=== PATIENT | female | born 1990 | race Caucasian/White ===

== ENCOUNTER → 2016-07-12 | Outpatient (CLI) | payer OTHER | LOC: M LAB 14:43 | PROVIDERS: ATTEND Family Medicine | DX: Z11.59 Encounter for screening for other viral diseases (principal) ==

== ENCOUNTER → 2016-07-26 | Outpatient (REF) | payer OTHER | LOC: M SFHCPLAZ 16:51 | PROVIDERS: ATTEND Family Medicine | DX: B19.20 Unspecified viral hepatitis C without hepatic coma (principal) ==

== ENCOUNTER → 2016-07-28 | Outpatient (REF) | payer OTHER | LOC: M SFHCPLAZ 08:21 | PROVIDERS: ATTEND Family Medicine | DX: B19.20 Unspecified viral hepatitis C without hepatic coma (principal) ==

== ENCOUNTER → 2016-08-07 | Outpatient (CLI) | payer OTHER ==
[2016-08-07 15:01] LABS: BASO % 0.6 % (0.0-1.0); EOS # 0.1 K/mm3 (0.0-0.50); EOS % 1.6 % (0.0-3.0); LARGE UNSTAINED CELL # 0.1 K/mm3 (0.0-0.4); LARGE UNSTAINED CELL % 1.7 % (0.0-4.0); LYMPH % 35.1 % (24.0-44.0); MEAN CORPUSCULAR HEMOGLOBIN 28.3 pg (27.0-33.0); MEAN CORPUSCULAR HGB CONC 33.4 g/dl (32.0-36.5); MEAN CORPUSCULAR VOLUME 84.7 fl (80.0-96.0); MONO # 0.3 K/mm3 (0.0-0.8); MONO % 4.6 % (0.0-5.0); NEUTROPHILS # 3.3 K/mm3 (1.8-7.7); NEUTROPHILS % 56.5 % (36.0-66.0); PLATELET COUNT, AUTOMATED 206 k/mm3 (150-450); RED CELL DISTRIBUTION WIDTH 12.5 % (11.5-14.5); WHITE BLOOD COUNT 5.8 K/mm3 (4.0-10.0)
[2016-08-07 15:29] LABS: ALBUMIN 3.6 GM/DL (3.2-5.2); ALBUMIN/GLOBULIN RATIO 1.38 (1.00-1.93); ALKALINE PHOSPHATASE 56 U/L (45-117); ALT/SGPT 20 U/L (12-78); ANION GAP 9 MEQ/L (8-16); AST/SGOT 14 U/L (15-37); BILIRUBIN,TOTAL 0.2 MG/DL (0.2-1.0); BLOOD UREA NITROGEN 23 MG/DL (7-18); CALCIUM LEVEL 8.2 MG/DL (8.5-10.1); CARBON DIOXIDE LEVEL 26 MEQ/L (21-32); CHLORIDE LEVEL 107 MEQ/L (98-107); CREATININE FOR GFR 0.74 MG/DL (0.55-1.02); GLOMERULAR FILTRATION RATE > 60.0 (>60); GLUCOSE, FASTING 145 MG/DL (70-105); SODIUM LEVEL 142 MEQ/L (136-145); TOTAL PROTEIN 6.2 GM/DL (6.4-8.2)
[2016-08-09 11:10] LABS: HEPATITIS B SURFACE ANTIBODY NEGATIVE (POSITIVE)
== END ==
LOC: M LAB 14:00
PROVIDERS: ATTEND Family Medicine
DX: B19.20 Unspecified viral hepatitis C without hepatic coma (principal)

== ENCOUNTER → 2016-09-06 | Outpatient (CLI) | payer OTHER ==
--- NOTE | 2016-09-06 13:00 | REP ---
Digital diagnostic unilateral right breast mammography with CAD and focused right breast sonography: History: Areas of periareolar and axillary pain in the right breast. Mammographic findings: Craniocaudad and mediolateral oblique views of the right breast demonstrate somewhat heterogeneous fibroglandular breast parenchymal density diffusely. No mass lesion, architectural distortion or spiculation is seen. No worrisome skin change is seen. Sonographic findings: Areas of pain in the right periareolar and axillary region are scanned sonographically. Heterogeneous fibroglandular background echotexture is seen. No cyst, mass, acoustic shadowing or other suspicious sonographic finding is seen. There are some slightly prominent retroareolar breast ducts. Impression: BIRADS category 2 benign right breast imaging. Clinical follow-up is advised. BI-RADS/ACR category 2 mammogram. Benign finding(s). Routine annual screening mammography (for women over age 40). This mammogram was interpreted with the aid of an FDA-approved computer-aided detection system. The patient states she had a clinical breast exam in August 2016. The patient letter being requested is M2. Signed by Sandeep Kimble MD 09/06/2016 01:31 P
== END ==
LOC: M RAD 11:21
PROVIDERS: ATTEND Family Medicine
DX: N64.4 Mastodynia (principal)
CPT/HCPCS: 76642; G0206

== ENCOUNTER → 2016-09-19 | Outpatient (REF) | payer OTHER ==
[2016-09-19 16:54] LABS: ALBUMIN 3.8 GM/DL (3.2-5.2); ALBUMIN/GLOBULIN RATIO 1.41 (1.00-1.93); ALKALINE PHOSPHATASE 75 U/L (45-117); ALT/SGPT 34 U/L (12-78); AST/SGOT 26 U/L (15-37); BILIRUBIN,DIRECT < 0.1 MG/DL (0.0-0.2); BILIRUBIN,TOTAL 0.2 MG/DL (0.2-1.0); TOTAL PROTEIN 6.5 GM/DL (6.4-8.2)
[2016-09-25 14:11] LABS: HEPATITIS C QUANTITATION HCV Not Detected IU/mL (.)
== END ==
LOC: M SFHCPLAZ 11:43
PROVIDERS: ATTEND Internal Medicine Infectious Disease
DX: B19.20 Unspecified viral hepatitis C without hepatic coma (principal)

== ENCOUNTER → 2016-10-06 | Outpatient (REF) | payer OTHER | LOC: M SFHCPLAZ 12:14 | PROVIDERS: ATTEND Family Medicine | DX: E10.9 Type 1 diabetes mellitus without complications (principal); Z13.220 Encounter for screening for lipoid disorders ==

== ENCOUNTER → 2016-10-06 | Outpatient (REF) | payer OTHER | LOC: M LAB REF 13:41 | PROVIDERS: ATTEND Family Medicine | DX: Z11.3 Encounter for screening for infections with a predominantly sexual mode of transmission (principal) ==

== ENCOUNTER → 2016-11-02 | Outpatient (REF) | payer OTHER ==
[2016-11-02 16:20] LABS: ALBUMIN 3.8 GM/DL (3.2-5.2); ALBUMIN/GLOBULIN RATIO 1.36 (1.00-1.93); ALKALINE PHOSPHATASE 62 U/L (45-117); ALT/SGPT 20 U/L (12-78); AST/SGOT 13 U/L (15-37); BILIRUBIN,DIRECT < 0.1 MG/DL (0.0-0.2); BILIRUBIN,TOTAL 0.3 MG/DL (0.2-1.0); TOTAL PROTEIN 6.6 GM/DL (6.4-8.2)
[2016-11-03 11:51] LABS: HEPATITIS B SURFACE ANTIBODY NEGATIVE (POSITIVE)
[2016-11-08 00:07] LABS: HEPATITIS C QUANTITATION 520 IU/mL (.)
== END ==
LOC: M SFHCPLAZ 12:36
PROVIDERS: ATTEND Internal Medicine Infectious Disease
DX: B19.20 Unspecified viral hepatitis C without hepatic coma (principal)

== ENCOUNTER → 2017-01-22 | Outpatient (REF) | payer OTHER | LOC: M SFHCWAGY 13:41 | PROVIDERS: ATTEND Nurse Practitioner Women's Health | DX: R87.622 Low grade squamous intraepithelial lesion on cytologic smear of vagina (LGSIL) (principal) ==

== ENCOUNTER → 2017-02-05 | Outpatient (REF) | payer OTHER ==
[2017-02-05 16:09] LABS: ALBUMIN 3.5 GM/DL (3.2-5.2); ALKALINE PHOSPHATASE 79 U/L (45-117); ALT/SGPT 25 U/L (12-78); ANION GAP 10 MEQ/L (8-16); AST/SGOT 12 U/L (15-37); BILIRUBIN,TOTAL 0.2 MG/DL (0.2-1.0); BLOOD UREA NITROGEN 14 MG/DL (7-18); CALCIUM LEVEL 8.3 MG/DL (8.5-10.1); CARBON DIOXIDE LEVEL 25 MEQ/L (21-32); CHLORIDE LEVEL 109 MEQ/L (98-107); CHOLESTEROL LEVEL 135 MG/DL (<200); CREATININE FOR GFR 0.71 MG/DL (0.55-1.02); GLOMERULAR FILTRATION RATE > 60.0 (>60); GLUCOSE, FASTING 147 MG/DL (70-105); POTASSIUM SERUM 3.6 MEQ/L (3.5-5.1); SODIUM LEVEL 144 MEQ/L (136-145); TOTAL PROTEIN 6.2 GM/DL (6.4-8.2); TRIGLYCERIDES LEVEL 122 MG/DL (<150)
[2017-02-07 10:31] LABS: HEPATITIS B SURFACE ANTIBODY NEGATIVE (POSITIVE)
== END ==
LOC: M SFHCPLAZ 10:58
PROVIDERS: ATTEND Internal Medicine Infectious Disease
DX: B19.20 Unspecified viral hepatitis C without hepatic coma (principal)

== ENCOUNTER → 2017-02-15 | Outpatient (CLI) | payer OTHER ==
[2017-02-19 14:14] LABS: HEPATITIS C VIRUS GENOTYPE 1a (.)
== END ==
LOC: M LAB 14:20
PROVIDERS: ATTEND Family Medicine
DX: B18.2 Chronic viral hepatitis C (principal)

== ENCOUNTER → 2017-03-16 | Outpatient (CLI) | payer OTHER ==
[2017-03-16 13:22] LABS: ALBUMIN 3.4 GM/DL (3.2-5.2); ALBUMIN/GLOBULIN RATIO 1.21 (1.00-1.93); BILIRUBIN,DIRECT 0.1 MG/DL (0.0-0.2); BILIRUBIN,TOTAL 0.2 MG/DL (0.2-1.0); TOTAL PROTEIN 6.2 GM/DL (6.4-8.2)
[2017-03-20 14:16] LABS: HEPATITIS C QUANTITATION HCV Not Detected IU/mL (.)
== END ==
LOC: M LAB 12:27
PROVIDERS: ATTEND Internal Medicine Infectious Disease
DX: B18.2 Chronic viral hepatitis C (principal)

== ENCOUNTER → 2017-04-03 | Outpatient (REF) | payer OTHER | LOC: M LAB REF 18:05 | PROVIDERS: ATTEND Obstetrics & Gynecology | DX: N87.1 Moderate cervical dysplasia (principal) ==

== ENCOUNTER → 2017-07-26 | Outpatient (REF) | payer OTHER ==
[2017-07-26 16:10] LABS: ALBUMIN 3.9 GM/DL (3.2-5.2); ALKALINE PHOSPHATASE 78 U/L (45-117); ALT/SGPT 18 U/L (12-78); ANION GAP 8 MEQ/L (8-16); AST/SGOT 17 U/L (7-37); BILIRUBIN,TOTAL 0.3 MG/DL (0.2-1.0); BLOOD UREA NITROGEN 15 MG/DL (7-18); CALCIUM LEVEL 8.6 MG/DL (8.5-10.1); CARBON DIOXIDE LEVEL 27 MEQ/L (21-32); CHLORIDE LEVEL 108 MEQ/L (98-107); CREATININE FOR GFR 0.67 MG/DL (0.55-1.30); GLOMERULAR FILTRATION RATE > 60.0 (>60); GLUCOSE, FASTING 52 MG/DL (70-100); SODIUM LEVEL 143 MEQ/L (136-145); TOTAL PROTEIN 6.9 GM/DL (6.4-8.2)
[2017-07-27 11:24] LABS: HEPATITIS B SURFACE ANTIBODY NEGATIVE (POSITIVE)
== END ==
LOC: M SFHCPLAZ 12:53
DX: B18.2 Chronic viral hepatitis C (principal)

== ENCOUNTER → 2018-07-09 | Outpatient (REF) | payer OTHER, MEDICAID ==
[2018-07-11 14:12] LABS: HPV HYBRID CAPTURE II Negative (Negative)
== END ==
LOC: M LAB REF 17:55
PROVIDERS: ATTEND Obstetrics & Gynecology
DX: Z12.4 Encounter for screening for malignant neoplasm of cervix (principal)

== ENCOUNTER 2019-01-21 09:45 | Emergency (ER) | payer MEDICAID, OTHER ==
[~2019-01-21] VITALS: Ht 154.9 cm; Wt 68.3 kg
[2019-01-21 13:19] VITALS: BP 117/72
== END 2019-01-21 13:20 | disposition home or self-care (01) ==
LOC: M ED 09:45
DX: Z20.1 Contact with and (suspected) exposure to tuberculosis (principal); Z88.0 Allergy status to penicillin; F17.200 Nicotine dependence, unspecified, uncomplicated

== ENCOUNTER → 2019-05-05 | Outpatient (CLI) | payer OTHER | LOC: M PLALAB 12:28 | PROVIDERS: ATTEND Internal Medicine Infectious Disease | DX: B18.2 Chronic viral hepatitis C (principal) ==

== ENCOUNTER 2019-10-02 00:39 | Emergency (ER) | payer MEDICAID, OTHER ==
[~2019-10-02] VITALS: Ht 154.9 cm; Wt 64.5 kg
[2019-10-02] MEDS ORDERED: GLUCAGON INJ 1MG VIAL IM STA (00:44)
[2019-10-02] MEDS ORDERED: DEXTROSE 50% 50 ML SYRINGE IV STA (00:52)
[2019-10-02] MEDS ORDERED: DEXTROSE 50% 50 ML SYRINGE As Ordered ONE (00:53)
[2019-10-02 02:20] VITALS: BP 122/79
== END 2019-10-02 02:32 | disposition home or self-care (01) ==
LOC: M ED 00:39 → EDBD 00:39 → M ED 02:32
DX: E10.649 Type 1 diabetes mellitus with hypoglycemia without coma (principal); B19.20 Unspecified viral hepatitis C without hepatic coma; F11.21 Opioid dependence, in remission; Z88.0 Allergy status to penicillin
CPT/HCPCS: 96372; 96374; 99291; J1610

== ENCOUNTER → 2020-08-03 | Outpatient (REF) | payer OTHER | LOC: M SFHCWAGY 16:58 | PROVIDERS: ATTEND Obstetrics & Gynecology | DX: N87.0 Mild cervical dysplasia (principal); Z87.410 Personal history of cervical dysplasia ==

== ENCOUNTER → 2020-08-25 | Outpatient (CLI) | payer OTHER ==
[~2020-08-25] MED LIST: ADME100I; BUPR300T92; INSU100I28; LISI2.5T2; RITA20TA PO; SPIR-10 PO; SUBO12MI SL
== END ==
LOC: M LABSMTC 10:51
PROVIDERS: ATTEND Anesthesiology
DX: Z01.818 Encounter for other preprocedural examination (principal); Z11.52 Encounter for screening for COVID-19

== ENCOUNTER 2020-08-30 09:32 | Day surgery (SDC) | payer OTHER ==
[~2020-08-30] VITALS: Ht 154.9 cm; Wt 62.5 kg
[~2020-08-30 09:32] MED LIST changes: -ADME100I; +ADME100I SQ; -BUPR300T92; +BUPR300T92 PO; +CLINDAMYCIN 900 MG in IV 1 EA IV ONE; +D5W IV ONE; +GENTAMICIN IV ONE; -INSU100I28; +INSU100I28 SQ; -LISI2.5T2; +LISI2.5T2 PO; +LR 1,000 ML IV ONE
[2020-08-30 10:07] LABS: HEMOGLOBIN 13.7 g/dl (12.0-15.5); MEAN CORPUSCULAR HEMOGLOBIN 28.2 pg (27.0-33.0); MEAN CORPUSCULAR HGB CONC 33.4 g/dl (32.0-36.5); MEAN CORPUSCULAR VOLUME 84.4 fl (80.0-96.0); PLATELET COUNT, AUTOMATED 230 10^3/uL (150-450); RED BLOOD COUNT 4.86 10^6/uL (4.00-5.40); WHITE BLOOD COUNT 5.9 10^3/uL (4.0-10.0)
[2020-08-30 10:18] LABS: HCG, SERUM QUALITATIVE NEGATIVE (NEGATIVE)
[2020-08-30] MEDS ORDERED: ROCURONIUM BROMIDE 50 MG/5 ML VIAL As Ordered ONE ×2 (10:50→12:50)
[2020-08-30] MEDS ORDERED: dexameTHASONE 4 MG/ML 1ML VIAL (J1100 PER 1MG) As Ordered ONE (10:50)
[2020-08-30] MEDS ORDERED: METOCLOPRAMIDE INJ 10MG/2ML VIAL (J2765 PER 1) As Ordered ONE (10:50)
[2020-08-30] MEDS ORDERED: propofoL 200 MG/20 ML VIAL As Ordered ONE (10:50)
[2020-08-30] MEDS ORDERED: ONDANSETRON 4MG/2ML VIAL As Ordered ONE (10:50)
[2020-08-30] MEDS ORDERED: ACETAMINOPHEN 1000MG 100ML IV BTL (OFIRMEV) (J0131 PER 10MG) As Ordered ONE (10:50)
[2020-08-30] MEDS ORDERED: LIDOCAINE 2% 100MG/5ML SDV (FOR ANES.) As Ordered ONE (10:50)
[2020-08-30] MEDS ORDERED: SUGAMMADEX SODIUM 500 MG/5 ML VIAL (BRIDION) As Ordered ONE (10:50)
[2020-08-30] MEDS ORDERED: MIDAZOLAM INJ 2MG/2ML VIAL (J2250 PER 1MG) As Ordered ONE (10:50)
[2020-08-30] MEDS ORDERED: fentaNYL 100 MCG/2 ML INJECTION (J3010) As Ordered ONE (10:51)
[2020-08-30] MEDS ORDERED: BUPIVACAINE HCL 0.25% 30ML VIAL As Ordered ONE (11:21)
[2020-08-30] MEDS ORDERED: METHYLENE BLUE 0.5% (5MG/ML) 10 ML AMP (PROVAYBLUE) As Ordered ONE (11:21)
[2020-08-30] MEDS ORDERED: HYDROmorphone HCL 2 MG/ML 1ML VIAL (J1170) As Ordered ONE ×2 (13:10→13:52)
[2020-08-30] MEDS ORDERED: KETOROLAC 30 MG/ML 1ML VIAL As Ordered ONE (13:52)
[2020-08-30] MEDS: HYDROMORPHONE HCL 0.5 MG/ 0.5 ML SYRINGE (J1170 PER 1) IV PRN ×3 (13:52→14:14)
[2020-08-30] MEDS ORDERED: oxyCODONE 5MG TAB PO PRN (13:55)
[2020-08-30] MEDS ORDERED: KETOROLAC 30 MG/ML 1ML VIAL IV PRN (13:55)
[2020-08-30] MEDS ORDERED: fentaNYL 100 MCG/2 ML INJECTION (J3010) IV PRN (13:55)
[2020-08-30] MEDS ORDERED: ONDANSETRON 4MG/2ML VIAL IV PRN (13:55)
[2020-08-30] MEDS ORDERED: LR 1,000 ML IV SCH ×2 (13:55→14:00)
--- NOTE | 2020-08-30 14:06 | ROOPDOC ---
[facility] Report Of Operation Report of Operation DATE OF PROCEDURE: 08/30/2020 PREPROCEDURE DIAGNOSES: Recurrent cervical dysplasia . Abnormal uterine bleeding, chronic pelvic pain. POSTPROCEDURE DIAGNOSES: Same. PROCEDURE: Robotic-assisted total laparoscopic hysterectomy, bilateral salpingectomy, cystoscopy SURGEON: Jake AlexanderOG G[employer] STATION MANAGER: Joycelyn Seay ANESTHESIA: General endotracheal. ESTIMATED BLOOD LOSS: Approximately 50 mL. FLUIDS REPLACED: 900 mL LR URINE OUTPUT: 150 mL COMPLICATIONS: None. FINDINGS: Normal-appearing ovaries bilaterally. Uterus was approximately 8 centimeters in greatest dimension. Cystoscopy: Bilateral ureteral orifice efflux, no bladder injury/suture material. PREOPERATIVE ANTIBIOTIC PROPHYLAXIS: Gentamicin 325 mg IV 1, clindamycin 900 mg IV 1 SPECIMEN(S): Uterus w/ cervix, bilateral fallopian tubes DESCRIPTION OF PROCEDURE: The patient was counseled, consented on the respective benefits, indications, alternatives of procedure. Informed consent was obtained. She was taken to the operating room with an IV running. She was placed on the operating table in dorsal supine position. Gen. anesthesia was administered and the airway was secured without any difficulty. She was placed in the low lithotomy position. . She was prepared and draped in the normal sterile fashion. A time out was performed per protocol. A Matamoros catheter was placed under sterile conditions. A sterile speculum was placed resulting in good visualization of the cervix. A single-tooth tenaculum was used to grasp the anterior lip cervix. The cervix was sequentially dilated with Hua dilators. A V-Care uterine manipulator was placed without any difficulty. The single-tooth tenaculum was removed, as well as the speculum. A sterile glove switch was performed. Attention was turned to the abdomen. A 2mm incision was made in the umbilicus, and through this incision a Veress needle was inserted into the intraperitoneal cavity. Intraperitoneal placement was confirmed with ease of flow of normal saline, positive drop test, no return on aspiration, and an opening pressure of less than 10 mmHg upon initial insufflation. The abdomen was insufflated with 2 L of gas. The Veress needle was removed. A supraumbilical 8 mm incision was made. Through this incision, the robotic trochar/cannula was inserted into the intraperitoneal cavity under direct visualization. No incidental bleeding nor injury was noted. Patient was placed in 30 Trendelenburg. The right and left trocars/cannulas were placed on both the right and left side through 8 mm incisions, guided by laparoscopic visualization. No incidental bleeding nor injury was noted. The robot was docked in typical fashion. The instruments were inserted, guided by laparoscopic visualization. My attention was turned to the robotic console. Using the vessel sealer device, the right and left fallopian tubes were amputated. The fallopian tubes were brought through the assist-port cannula without any difficulty. The right utero-ovarian ligament and right round ligament were sequentially clamped, coagulated and transected with the vessel sealer device. The vesicouterine peritoneum was dissected with the vessel sealer device to create the bladder flap, thus mobilizing the lower uterine segment and cervix off of the bladder. The right uterine vasculature was sequentially clamped, coagulated and transected above the colpotomy cup. The left utero-ovarian ligament and left round ligament were sequentially clamped, coagulated and transected with the vessel sealer device. The remainder of the bladder flap was dissected using the vessel sealer device and blunt dissection. The left uterine vasculature was sequentially clamped, coagulated and transected above the colpotomy cup. The outline of the entire V- care colpotomy cup was able to be delineated. Excellent blanching of the uterus was noted. A circumferential colpotomy was performed using the da Michelle monopolar arleen, following the contour of the cup. The amputated cervix and uterus were brought through the colpotomy into and out of the vagina, intact as one unit. The colpotomy was closed with the V-lock barbed suture in running fashion, thus creating the vaginal cuff. Excellent hemostasis was noted throughout the steps above. Sussy was placed over the vaginal cuff to ensure hemostasis. The instruments were removed from the abdomen and the robot was un-docked. The gas was released from the abdomen and the patient was taken out of Trendelenburg. I re-scrubbed, and attention was turned to the pelvis. The Matamoros catheter was removed. The cystoscope was placed transurethrally into the bladder and normal saline was instilled. No bladder injury/suture material was noted. IV methylene blue had been administered by anesthesia and bilateral UO efflux was confirmed. The fluid was drained out of the bladder through the cystoscope device, then the cystoscope was removed. The vagina was copiously irrigated. A sterile digital vaginal exam revealed no significant bleeding and an intact vaginal cuff. A sterile glove switch was performed. The da Michelle cannulas were removed. The skin incisions were closed with 4-0 Monocryl in subcuticular fashion. Sponge, needle and instrument counts were correct per protocol. The patient tolerated the entire procedure very well. She was transferred to the PACU in good and stable condition. DO YARITZA Cid JONATHAN R. DO August 30, 2020 14:06
[2020-08-30 16:00] VITALS: BP 130/92
[2020-08-30] MEDS ORDERED: METHYLPHENIDATE 5 MG TAB PO SCH (16:00)
[2020-08-30] MEDS ORDERED: IBUP80TA PO (16:24)
[2020-08-30] MEDS ORDERED: ACET300T47 PO (16:25)
[2020-08-30] MEDS ORDERED: COLA100C5 PO (16:27)
[2020-08-30 16:30] VITALS: BP 129/69
[2020-08-31] MEDS ORDERED: SPIRONOLACTONE 25 MG TAB PO SCH (09:00)
[2020-08-31] MEDS ORDERED: LISINOPRIL *2.5 MG* TAB PO SCH (09:00)
== END 2020-08-30 18:05 | disposition home or self-care (01) ==
LOC: M SDC 09:32 → M MS5PR 15:50 → M SDC 18:05
PROVIDERS: ATTEND Obstetrics & Gynecology
DX: N87.9 Dysplasia of cervix uteri, unspecified (principal); N93.9 Abnormal uterine and vaginal bleeding, unspecified; R10.2 Pelvic and perineal pain; E10.9 Type 1 diabetes mellitus without complications; Z86.19 Personal history of other infectious and parasitic diseases; F90.9 Attention-deficit hyperactivity disorder, unspecified type; Z87.442 Personal history of urinary calculi; F17.210 Nicotine dependence, cigarettes, uncomplicated; F12.10 Cannabis abuse, uncomplicated; Z88.0 Allergy status to penicillin; Z88.8 Allergy status to other drugs, medicaments and biological substances; Z79.899 Other long term (current) drug therapy
CPT/HCPCS: 36415; 58571; 84703; 85027; 86850; 86900; 86901; 88307; J0131; J1100; J1170; J1580; J1885; J2250; J2405; J2765; J3010; Q9968; S2900

== ENCOUNTER 2020-12-08 18:03 | Emergency (ER) | payer OTHER ==
[~2020-12-08] VITALS: Ht 154.9 cm; Wt 59.1 kg
[~2020-12-08 18:03] MED LIST changes: +ACET300T47 PO; -CLINDAMYCIN 900 MG in IV 1 EA IV ONE; +COLA100C5 PO; -D5W IV ONE; -GENTAMICIN IV ONE; +IBUP80TA PO; -LISI2.5T2 PO; +LISI2.5T9 PO; -LR 1,000 ML IV ONE
[2020-12-08 20:48] LABS: BASO % 0.2 % (0.0-1.0); EOS % 0.1 % (0.0-3.0); HEMATOCRIT 45.4 % (36.0-47.0); HEMOGLOBIN 14.8 g/dl (12.0-15.5); LYMPH # 0.5 10^3/uL (1.5-5.0); LYMPH % 3.2 % (24.0-44.0); MEAN CORPUSCULAR HEMOGLOBIN 29.7 pg (27.0-33.0); MEAN CORPUSCULAR HGB CONC 32.6 g/dl (32.0-36.5); MEAN CORPUSCULAR VOLUME 91.2 fl (80.0-96.0); MONO # 0.4 10^3/uL (0.0-0.8); MONO % 2.3 % (2.0-8.0); NEUTROPHILS # 15.8 10^3/uL (1.5-8.5); NEUTROPHILS % 93.7 % (36.0-66.0); PLATELET COUNT, AUTOMATED 235 10^3/uL (150-450); RED BLOOD COUNT 4.98 10^6/uL (4.00-5.40); WHITE BLOOD COUNT 16.8 10^3/uL (4.0-10.0)
[2020-12-08 21:12] LABS: BLOOD UREA NITROGEN 16 MG/DL (7-18); CALCIUM LEVEL 8.5 MG/DL (8.5-10.1); CARBON DIOXIDE LEVEL 24 MEQ/L (21-32); CHLORIDE LEVEL 107 MEQ/L (98-107); CREATININE FOR GFR 0.69 MG/DL (0.55-1.30); GLOMERULAR FILTRATION RATE > 60.0 (>60); GLUCOSE, FASTING 291 MG/DL (70-100); POTASSIUM SERUM 4.2 MEQ/L (3.5-5.1); SODIUM LEVEL 137 MEQ/L (136-145)
[2020-12-09] MEDS ORDERED: ONDANSETRON 4MG/2ML VIAL IV ONE (01:15)
[2020-12-09] MEDS ORDERED: ISOVUE-370 76% 100ML VIAL As Ordered ONE (01:25)
[2020-12-09] MEDS: MORPHINE 4 MG/ML 1ML VIAL/SYRINGE (J2270) IV PRN ×2 (02:13→05:13)
--- NOTE | 2020-12-09 03:52 | REPVR ---
PROCEDURE INFORMATION: Exam: CT Abdomen And Pelvis With Contrast Exam date and time: 12/09/2020 1:13 AM Age: 30 years old Clinical indication: Abdominal pain; Generalized; Patient HX: Pain after sex>; Additional info: Generalized abd pain after sex TECHNIQUE: Imaging protocol: Computed tomography of the abdomen and pelvis with contrast. Radiation optimization: All CT scans at this facility use at least one of these dose optimization techniques: automated exposure control; mA and/or kV adjustment per patient size (includes targeted exams where dose is matched to clinical indication); or iterative reconstruction. Contrast material: ISO; Contrast volume: 100 ml; Contrast route: INTRAVENOUS (IV); COMPARISON: US PELVIC NON-OB COMPLETE 12/09/2020 1:39 AM FINDINGS: Liver: Mild hepatomegaly. Focal fat in left hepatic lobe along falciform ligament fissure. Gallbladder and bile ducts: Normal. No calcified stones. No ductal dilation. Pancreas: Normal. No ductal dilation. Spleen: Normal. No splenomegaly. Adrenal glands: Normal. No mass. Kidneys and ureters: Punctate nonobstructing left renal calculus. No hydronephrosis. Stomach and bowel: Unremarkable. No obstruction. No mucosal thickening. Appendix: No evidence of appendicitis. Intraperitoneal space: Unremarkable. No free air. No significant fluid collection. Vasculature: Unremarkable. No abdominal aortic aneurysm. Lymph nodes: Unremarkable. No enlarged lymph nodes. Urinary bladder: Unremarkable as visualized. Reproductive: Status post hysterectomy. Bones/joints: Mild stenosis of the spinal canal at L4-L5. Soft tissues: Unremarkable. IMPRESSION: No acute findings. Punctate nonobstructing left renal calculus. No hydronephrosis. No bowel obstruction. Normal appendix. Electronically signed by: Britton Valladares On 12/09/2020 03:52:04 AM
--- NOTE | 2020-12-09 03:54 | REPVR ---
PROCEDURE INFORMATION: Exam: US Nonobstetric Pelvis; Complete Exam date and time: 12/09/2020 1:13 AM Age: 30 years old Clinical indication: Pelvic pain; Prior surgery; Surgery date: 1-6 months; Surgery type: Hysterectomy; Additional info: Generalized abd pain after sex, vag bleeding TECHNIQUE: Imaging protocol: Transabdominal pelvic nonobstetric ultrasound. Complete exam. Real time ultrasound with image documentation. COMPARISON: No relevant prior studies available. FINDINGS: Uterus/cervix: Status post hysterectomy. Right adnexa: Right ovary obscured by bowel gas. Left adnexa: Left ovary is obscured by bowel gas. Intraperitoneal space: No intraperitoneal fluid. Urinary bladder: Unremarkable urinary bladder. IMPRESSION: No acute findings. Status post hysterectomy. Ovaries obscured by bowel gas. Electronically signed by: Britton Valladares On 12/09/2020 03:53:49 AM
[2020-12-09 05:17] LABS: GC DNA AMPLIFICATION NEGATIVE (NEGATIVE)
[2020-12-09 06:14] VITALS: BP 115/61
== END 2020-12-09 06:25 | disposition home or self-care (01) ==
LOC: M ED 18:03
DX: R10.9 Unspecified abdominal pain (principal); N89.9 Noninflammatory disorder of vagina, unspecified; E10.9 Type 1 diabetes mellitus without complications; I10 Essential (primary) hypertension; F11.10 Opioid abuse, uncomplicated; B19.20 Unspecified viral hepatitis C without hepatic coma; Z90.710 Acquired absence of both cervix and uterus; Z79.899 Other long term (current) drug therapy; Z79.4 Long term (current) use of insulin; Z88.0 Allergy status to penicillin; Z88.8 Allergy status to other drugs, medicaments and biological substances; F17.210 Nicotine dependence, cigarettes, uncomplicated
CPT/HCPCS: 74177; 76856; 80048; 81001; 85025; 87210; 87661; 96374; 96375; 96376; 99284; J2270; J2405; Q9967

== ENCOUNTER 2021-12-13 12:01 | Inpatient (IN) | payer OTHER ==
[~2021-12-13] VITALS: Ht 157.5 cm; Wt 59.6 kg
[~2021-12-13 12:01] MED LIST changes: +ADME100I SC; -ADME100I SQ
[2021-12-13] MEDS ORDERED: ONDANSETRON 4MG 2ML VIAL IV ONE (13:35)
[2021-12-13] MEDS ORDERED: NS 1,000 ML IV ONE ×3 (13:35→17:10)
[2021-12-13 15:39] LABS: VENOUS BASE EXCESS -16.8 (-2.0-2.0); VENOUS HCO3 11.4 MEQ/L (23.0-27.0); VENOUS PARTIAL PRESSURE CO2 34.8 mmHg (38.0-50.0); VENOUS PARTIAL PRESSURE O2 104.5 mmHg (30.0-50.0); VENOUS PH 7.132 UNITS (7.330-7.430); VENOUS STANDARD HCO3 12.2 MEQ/L; VENOUS TOTAL CO2 12.4 MEQ/L (24.0-28.0)
[2021-12-13 15:48] LABS: BASO # 0.1 10^3/uL (0.0-0.2); BASO % 0.4 % (0.0-1.0); HEMATOCRIT 44.1 % (36.0-47.0); HEMOGLOBIN 14.5 g/dl (12.0-15.5); LYMPH # 1.3 10^3/uL (1.5-5.0); MEAN CORPUSCULAR HGB CONC 32.9 g/dl (32.0-36.5); MEAN CORPUSCULAR VOLUME 91.1 fl (80.0-96.0); MONO # 1.2 10^3/uL (0.0-0.8); MONO % 5.5 % (2.0-8.0); NEUTROPHILS # 19.6 10^3/uL (1.5-8.5); NEUTROPHILS % 87.3 % (36.0-66.0); PLATELET COUNT, AUTOMATED 335 10^3/uL (150-450); RED BLOOD COUNT 4.84 10^6/uL (4.00-5.40); WHITE BLOOD COUNT 22.5 10^3/uL (4.0-10.0)
[2021-12-13 15:59] LABS: AMPHETAMINES LEVEL URINE NEGATIVE (NEGATIVE); BARBITURATES URINE NEGATIVE (NEGATIVE); BENZODIAZEPINES URINE NEGATIVE (NEGATIVE); CANNABINOIDS URINE POSITIVE (NEGATIVE); COCAINE METABOLITE URINE NEGATIVE (NEGATIVE); METHADONE URINE NEGATIVE (NEGATIVE); OPIATES URINE NEGATIVE (NEGATIVE); PHENCYCLIDINE URINE NEGATIVE (NEGATIVE)
[2021-12-13 16:01] LABS: HEMOGLOBIN A1c 7.4 %
[2021-12-13 16:16] LABS: ALBUMIN 4.7 GM/DL (3.2-5.2); ALT/SGPT 24 U/L (12-78); BILIRUBIN,DIRECT 0.3 MG/DL (0.0-0.2); BILIRUBIN,TOTAL 0.7 MG/DL (0.2-1.0); BLOOD UREA NITROGEN 30 MG/DL (7-18); CALCIUM LEVEL 10.1 MG/DL (8.5-10.1); CARBON DIOXIDE LEVEL 10 MEQ/L (21-32); CHLORIDE LEVEL 101 MEQ/L (98-107); CREATININE FOR GFR 0.94 MG/DL (0.55-1.30); ETHYL ALCOHOL (ETHANOL) 0.004 % (0.000-0.010); GLOMERULAR FILTRATION RATE > 60.0 (>60); GLUCOSE, FASTING 339 MG/DL (70-100); LIPASE 33 U/L (73-393); OSMOLALITY SERUM 306 MOSM/KG (275-295); POTASSIUM SERUM 5.5 MEQ/L (3.5-5.1); SODIUM LEVEL 130 MEQ/L (136-145); TOTAL PROTEIN 7.4 GM/DL (6.4-8.2)
[2021-12-13 16:31] LABS: ACETONE/KETONE > 46.00 MG/DL (<2.81)
[2021-12-13] MEDS ORDERED: ISOVUE-370 76% 100ML VIAL As Ordered ONE (16:34)
[2021-12-13] MEDS ORDERED: INSULIN IV RATE CHANGE DOCUMENTATION ML/HR XX SCH ×2 (16:40→22:15)
[2021-12-13] MEDS ORDERED: INSULIN REGULAR IN 0.9 % NACL 100 UNIT in IV 1 EA IV SCH ×6 (16:40→22:15)
[2021-12-13] MEDS ORDERED: PROMETHAZINE 25MG/ML 1ML VIAL IV ONE (16:45)
[2021-12-13] MEDS ORDERED: SUBO8MIS SL (17:35)
[2021-12-13 18:03] LABS: VENOUS BASE EXCESS -18.1 (-2.0-2.0); VENOUS HCO3 9.8 MEQ/L (23.0-27.0); VENOUS O2 SATURATION 96.3 % (60.0-80.0); VENOUS PARTIAL PRESSURE CO2 30.2 mmHg (38.0-50.0); VENOUS PARTIAL PRESSURE O2 97.5 mmHg (30.0-50.0); VENOUS PH 7.128 UNITS (7.330-7.430); VENOUS STANDARD HCO3 11.2 MEQ/L; VENOUS TOTAL CO2 10.7 MEQ/L (24.0-28.0)
[2021-12-13 18:33] LABS: BLOOD UREA NITROGEN 32 MG/DL (7-18); CALCIUM LEVEL 8.5 MG/DL (8.5-10.1); CARBON DIOXIDE LEVEL 10 MEQ/L (21-32); CHLORIDE LEVEL 102 MEQ/L (98-107); CREATININE FOR GFR 0.95 MG/DL (0.55-1.30); GLOMERULAR FILTRATION RATE > 60.0 (>60); GLUCOSE, FASTING 332 MG/DL (70-100); PHOSPHORUS LEVEL 4.6 MG/DL (2.5-4.9); POTASSIUM SERUM 5.7 MEQ/L (3.5-5.1); SODIUM LEVEL 127 MEQ/L (136-145)
[2021-12-13] MEDS ORDERED: HOME MED LIST COMPLETE! XX SCH (18:35)
[2021-12-13 20:00] VITALS: BP 114/48
[2021-12-13] MEDS ORDERED: INSULIN LISPRO (NovoLOG) PER UNIT SC STA (20:12)
[2021-12-13 20:30] VITALS: BP 106/58
[2021-12-13 21:00] VITALS: BP 116/59
[2021-12-13] MEDS: NS 1,000 ML IV SCH ×2 (21:10→21:39)
[2021-12-13 21:17] LABS: VENOUS BASE EXCESS -19.5 (-2.0-2.0); VENOUS HCO3 8.2 MEQ/L (23.0-27.0); VENOUS O2 SATURATION 97.8 % (60.0-80.0); VENOUS PARTIAL PRESSURE CO2 25.3 mmHg (38.0-50.0); VENOUS PARTIAL PRESSURE O2 116.6 mmHg (30.0-50.0); VENOUS PH 7.127 UNITS (7.330-7.430); VENOUS STANDARD HCO3 10.2 MEQ/L; VENOUS TOTAL CO2 8.9 MEQ/L (24.0-28.0)
[2021-12-13 21:30] VITALS: BP 146/66
[2021-12-13] MEDS ORDERED: LR 1,000 ML IV ONE (21:30)
[2021-12-13 21:50] LABS: BLOOD UREA NITROGEN 31 MG/DL (7-18); CALCIUM LEVEL 8.4 MG/DL (8.5-10.1); CARBON DIOXIDE LEVEL 8 MEQ/L (21-32); CHLORIDE LEVEL 105 MEQ/L (98-107); CREATININE FOR GFR 1.04 MG/DL (0.55-1.30); GLOMERULAR FILTRATION RATE > 60.0 (>60); GLUCOSE, FASTING 402 MG/DL (70-100); POTASSIUM SERUM 5.9 MEQ/L (3.5-5.1); SODIUM LEVEL 132 MEQ/L (136-145)
[2021-12-13 22:00] VITALS: BP 134/64
[2021-12-13 23:00] VITALS: BP 120/57
[2021-12-13] MEDS: INSULIN IV RATE CHANGE DOCUMENTATION ML/HR XX SCH (23:10)
[2021-12-13] MEDS ORDERED: D5W/0.45% SODIUM CHLORIDE 1,000 ML IV SCH (23:15)
[2021-12-14] VITALS (13 sets, daily range): BP systolic 107–120; BP diastolic 56–74
[2021-12-14] MEDS: INSULIN IV RATE CHANGE DOCUMENTATION ML/HR XX SCH ×6 (00:10→08:49)
[2021-12-14 00:11] LABS: VENOUS BASE EXCESS -13.9 (-2.0-2.0); VENOUS HCO3 12.5 MEQ/L (23.0-27.0); VENOUS O2 SATURATION 97.8 % (60.0-80.0); VENOUS PARTIAL PRESSURE CO2 30.8 mmHg (38.0-50.0); VENOUS PH 7.225 UNITS (7.330-7.430); VENOUS STANDARD HCO3 13.8 MEQ/L; VENOUS TOTAL CO2 13.4 MEQ/L (24.0-28.0)
[2021-12-14 01:02] LABS: BLOOD UREA NITROGEN 29 MG/DL (7-18); CALCIUM LEVEL 7.7 MG/DL (8.5-10.1); CARBON DIOXIDE LEVEL 14 MEQ/L (21-32); CHLORIDE LEVEL 111 MEQ/L (98-107); GLOMERULAR FILTRATION RATE > 60.0 (>60); GLUCOSE, FASTING 258 MG/DL (70-100); PHOSPHORUS LEVEL 2.7 MG/DL (2.5-4.9); POTASSIUM SERUM 4.2 MEQ/L (3.5-5.1); SODIUM LEVEL 137 MEQ/L (136-145)
[2021-12-14] MEDS: KCL 20MEQ IN D5/0.45NS 1000ML 1,000 ML IV SCH ×2 (02:23→08:01)
[2021-12-14 03:10] LABS: VENOUS BASE EXCESS -10.1 (-2.0-2.0); VENOUS HCO3 15.4 MEQ/L (23.0-27.0); VENOUS O2 SATURATION 98.5 % (60.0-80.0); VENOUS PARTIAL PRESSURE CO2 32.6 mmHg (38.0-50.0); VENOUS PARTIAL PRESSURE O2 131.6 mmHg (30.0-50.0); VENOUS PH 7.291 UNITS (7.330-7.430); VENOUS STANDARD HCO3 16.4 MEQ/L; VENOUS TOTAL CO2 16.4 MEQ/L (24.0-28.0)
[2021-12-14 03:49] LABS: BLOOD UREA NITROGEN 26 MG/DL (7-18); CALCIUM LEVEL 7.8 MG/DL (8.5-10.1); CARBON DIOXIDE LEVEL 17 MEQ/L (21-32); CHLORIDE LEVEL 108 MEQ/L (98-107); CREATININE FOR GFR 0.96 MG/DL (0.55-1.30); GLOMERULAR FILTRATION RATE > 60.0 (>60); GLUCOSE, FASTING 239 MG/DL (70-100); PHOSPHORUS LEVEL 1.9 MG/DL (2.5-4.9); POTASSIUM SERUM 4.2 MEQ/L (3.5-5.1); SODIUM LEVEL 136 MEQ/L (136-145)
[2021-12-14 06:17] LABS: VENOUS BASE EXCESS -7.9 (-2.0-2.0); VENOUS O2 SATURATION 98.6 % (60.0-80.0); VENOUS PARTIAL PRESSURE O2 141.2 mmHg (30.0-50.0); VENOUS PH 7.331 UNITS (7.330-7.430); VENOUS STANDARD HCO3 18.1 MEQ/L; VENOUS TOTAL CO2 18.1 MEQ/L (24.0-28.0)
[2021-12-14 07:05] LABS: BLOOD UREA NITROGEN 22 MG/DL (7-18); CALCIUM LEVEL 7.7 MG/DL (8.5-10.1); CARBON DIOXIDE LEVEL 19 MEQ/L (21-32); CHLORIDE LEVEL 112 MEQ/L (98-107); CREATININE FOR GFR 0.81 MG/DL (0.55-1.30); GLOMERULAR FILTRATION RATE > 60.0 (>60); GLUCOSE, FASTING 185 MG/DL (70-100); PHOSPHORUS LEVEL 2.1 MG/DL (2.5-4.9); POTASSIUM SERUM 4.5 MEQ/L (3.5-5.1); SODIUM LEVEL 136 MEQ/L (136-145)
[2021-12-14] MEDS ORDERED: LEVEMIR (INSULIN DETEMIR) 1 UNITS/0.01ML SC ONE (08:00)
[2021-12-14] MEDS: ENOXAPARIN 40MG/0.4ML SYRINGE (J1650 PER 10MG) SC SCH (08:01)
[2021-12-14] MEDS ORDERED: PILL CUTTER 1 EACH XX PRN (08:25)
[2021-12-14] MEDS: BUPRENORPHINE/NALOXONE 8-2MG SUBLINGUAL TABLET(SUBOXONE) SL SCH (08:36)
[2021-12-14] MEDS: METHYLPHENIDATE 5 MG TAB PO SCH ×3 (08:36→17:14)
[2021-12-14] MEDS: buPROPion **XL** TABLET 150MG (WELLBUTRIN XL) PO SCH (08:37)
[2021-12-14] MEDS ORDERED: PANTOPRAZOLE 40MG VIAL IV SCH (09:00)
[2021-12-14] MEDS ORDERED: LISINOPRIL *2.5 MG* TAB PO SCH (09:00)
[2021-12-14 09:16] LABS: MEAN CORPUSCULAR HEMOGLOBIN 30.4 pg (27.0-33.0); MEAN CORPUSCULAR HGB CONC 34.1 g/dl (32.0-36.5); MEAN CORPUSCULAR VOLUME 89.4 fl (80.0-96.0); PLATELET COUNT, AUTOMATED 266 10^3/uL (150-450); RED BLOOD COUNT 3.58 10^6/uL (4.00-5.40)
[2021-12-14] MEDS ORDERED: INSULIN LISPRO (NovoLOG) PER UNIT SC ONE (09:20)
[2021-12-14 09:21] LABS: HEMOGLOBIN 10.9 g/dl (12.0-15.5)
[2021-12-14 11:21] LABS: VENOUS PH 7.309 UNITS (7.330-7.430)
[2021-12-14 11:22] LABS: VENOUS BASE EXCESS -6.3 (-2.0-2.0); VENOUS HCO3 19.5 MEQ/L (23.0-27.0); VENOUS O2 SATURATION 97.5 % (60.0-80.0); VENOUS PARTIAL PRESSURE CO2 39.8 mmHg (38.0-50.0); VENOUS PARTIAL PRESSURE O2 101.6 mmHg (30.0-50.0); VENOUS STANDARD HCO3 19.3 MEQ/L; VENOUS TOTAL CO2 20.8 MEQ/L (24.0-28.0)
[2021-12-14 12:04] LABS: BLOOD UREA NITROGEN 17 MG/DL (7-18); CALCIUM LEVEL 8.1 MG/DL (8.5-10.1); CARBON DIOXIDE LEVEL 19 mmol/L (20-29); CHLORIDE LEVEL 109 MEQ/L (98-107); CREATININE FOR GFR 0.73 MG/DL (0.55-1.30); GLOMERULAR FILTRATION RATE > 60.0 (>60); GLUCOSE, FASTING 191 MG/DL (70-100); SODIUM LEVEL 137 MEQ/L (136-145)
[2021-12-14] MEDS: INSULIN LISPRO (NovoLOG) PER UNIT SC SCH ×2 (13:22→17:20)
[2021-12-14] MEDS: ONDANSETRON 4MG 2ML VIAL IV PRN (13:59)
[2021-12-14] MEDS ORDERED: PROMETHAZINE 25 MG TAB PO ONE ×2 (15:45→20:20)
[2021-12-14 15:52] LABS: VENOUS BASE EXCESS -4.5 (-2.0-2.0); VENOUS HCO3 20.9 MEQ/L (23.0-27.0); VENOUS O2 SATURATION 89.9 % (60.0-80.0); VENOUS PARTIAL PRESSURE CO2 39.5 mmHg (38.0-50.0); VENOUS PARTIAL PRESSURE O2 55.7 mmHg (30.0-50.0); VENOUS PH 7.341 UNITS (7.330-7.430); VENOUS STANDARD HCO3 20.6 MEQ/L; VENOUS TOTAL CO2 22.1 MEQ/L (24.0-28.0)
[2021-12-14 16:40] LABS: BLOOD UREA NITROGEN 15 MG/DL (7-18); CALCIUM LEVEL 8.2 MG/DL (8.5-10.1); CARBON DIOXIDE LEVEL 22 MEQ/L (21-32); CHLORIDE LEVEL 108 MEQ/L (98-107); CREATININE FOR GFR 0.66 MG/DL (0.55-1.30); GLOMERULAR FILTRATION RATE > 60.0 (>60); GLUCOSE, FASTING 165 MG/DL (70-100); PHOSPHORUS LEVEL 1.7 MG/DL (2.5-4.9); POTASSIUM SERUM 4.1 MEQ/L (3.5-5.1); SODIUM LEVEL 136 MEQ/L (136-145)
[2021-12-14] MEDS ORDERED: GLUCAGON INJ 1MG VIAL SC PRN (17:15)
[2021-12-14] MEDS ORDERED: GLUCOSE 4GM CHEW TABLET PO PRN (17:15)
[2021-12-14] MEDS ORDERED: DEXTROSE 50% 50 ML SYRINGE IV PRN (17:15)
[2021-12-14] MEDS ORDERED: LEVEMIR (INSULIN DETEMIR) 1 UNITS/0.01ML SC SCH ×2 (21:00)
[2021-12-14] MEDS ORDERED: INSULIN LISPRO (NovoLOG) PER UNIT SC SCH (21:00)
[2021-12-14] MEDS: LEVEMIR (INSULIN DETEMIR) 1 UNITS/0.01ML SC SCH (21:23)
[2021-12-15] MEDS ORDERED: SODIUM CHLORIDE 0.9% INJ 10 ML SYR IV PRN (03:05)
[2021-12-15 04:07] VITALS: BP 106/57
[2021-12-15] MEDS ORDERED: SODIUM CHLORIDE 0.9% INJ 10 ML SYR IV SCH (06:00)
[2021-12-15] MEDS: METHYLPHENIDATE 5 MG TAB PO SCH ×2 (08:00→11:42)
[2021-12-15] MEDS: LEVEMIR (INSULIN DETEMIR) 1 UNITS/0.01ML SC SCH (08:31)
[2021-12-15] MEDS: BUPRENORPHINE/NALOXONE 8-2MG SUBLINGUAL TABLET(SUBOXONE) SL SCH (08:31)
[2021-12-15] MEDS: buPROPion **XL** TABLET 150MG (WELLBUTRIN XL) PO SCH (08:31)
[2021-12-15] MEDS: ENOXAPARIN 40MG/0.4ML SYRINGE (J1650 PER 10MG) SC SCH (08:32)
[2021-12-15] MEDS: ONDANSETRON 4MG 2ML VIAL IV PRN (08:41)
[2021-12-15] MEDS: INSULIN LISPRO (NovoLOG) PER UNIT SC SCH ×2 (08:42→12:28)
[2021-12-15 08:50] LABS: HEMATOCRIT 31.3 % (36.0-47.0); HEMOGLOBIN 10.4 g/dl (12.0-15.5); MEAN CORPUSCULAR HEMOGLOBIN 29.9 pg (27.0-33.0); MEAN CORPUSCULAR HGB CONC 33.2 g/dl (32.0-36.5); MEAN CORPUSCULAR VOLUME 89.9 fl (80.0-96.0); PLATELET COUNT, AUTOMATED 194 10^3/uL (150-450); RED BLOOD COUNT 3.48 10^6/uL (4.00-5.40); WHITE BLOOD COUNT 9.1 10^3/uL (4.0-10.0)
[2021-12-15 09:12] LABS: PHOSPHORUS LEVEL 1.5 MG/DL (2.5-4.9)
[2021-12-15 09:13] LABS: BLOOD UREA NITROGEN 10 MG/DL (7-18); CALCIUM LEVEL 7.9 MG/DL (8.5-10.1); CARBON DIOXIDE LEVEL 28 MEQ/L (21-32); CHLORIDE LEVEL 108 MEQ/L (98-107); CREATININE FOR GFR 0.54 MG/DL (0.55-1.30); GLOMERULAR FILTRATION RATE > 60.0 (>60); GLUCOSE, FASTING 203 MG/DL (70-100); SODIUM LEVEL 140 MEQ/L (136-145)
[2021-12-15] MEDS ORDERED: LEVE1INJ5 SC (11:24)
[2021-12-15] MEDS ORDERED: ADME100I SC (11:25)
[2021-12-15] MEDS ORDERED: ONDA-83 PO (11:39)
[2021-12-15] MEDS ORDERED: K-PHOS ORIGINAL (POT.ACID PHOSPHATE) 500MG TAB PO ONE (13:00)
== END 2021-12-15 13:00 | disposition home or self-care (01) | DRG 420 ==
LOC: M ED 12:01 → EDBD 12:01 → M ED INP 18:06 → ENRESERV 19:50 → M ICU 20:04 → M 4MAIN 12-14 21:55
PROVIDERS: ADMIT Internal Medicine Pulmonary Disease; ATTEND Internal Medicine
PROC: 02HV33Z Insertion of Infusion Device into Superior Vena Cava, Percutaneous Approach (ICD-10-PCS; principal; 2021-12-13)
DX: E10.10 Type 1 diabetes mellitus with ketoacidosis without coma (principal); F32.A Depression, unspecified; F41.9 Anxiety disorder, unspecified; F17.210 Nicotine dependence, cigarettes, uncomplicated; F90.9 Attention-deficit hyperactivity disorder, unspecified type; Z79.4 Long term (current) use of insulin; Z96.41 Presence of insulin pump (external) (internal); Z88.0 Allergy status to penicillin; Z79.899 Other long term (current) drug therapy; D72.829 Elevated white blood cell count, unspecified; T38.3X6A Underdosing of insulin and oral hypoglycemic [antidiabetic] drugs, initial encounter; Z91.128 Patient's intentional underdosing of medication regimen for other reason

== ENCOUNTER 2022-02-15 11:07 | Emergency (ER) | payer OTHER ==
[~2022-02-15] VITALS: Ht 154.9 cm; Wt 61.0 kg
[~2022-02-15 11:07] MED LIST changes: +LEVE1INJ5 SC; +ONDA-83 PO; +SUBO8MIS SL
[2022-02-15 11:14] VITALS: BP 132/65
== END 2022-02-15 15:07 | disposition left against medical advice (07) ==
LOC: M ED 11:07
DX: Z53.21 Procedure and treatment not carried out due to patient leaving prior to being seen by health care provider (principal)

== ENCOUNTER 2022-07-26 03:50 | Emergency (ER) | payer OTHER ==
[~2022-07-26] VITALS: Ht 154.9 cm; Wt 56.8 kg
[~2022-07-26 03:50] MED LIST changes: +INSU100I6 SC; -LEVE1INJ5 SC
[2022-07-26 03:51] VITALS: BP 138/84
== END 2022-07-26 04:23 | disposition left against medical advice (07) ==
LOC: M ED 03:50
DX: S69.90XA Unspecified injury of unspecified wrist, hand and finger(s), initial encounter (principal); X58.XXXA Exposure to other specified factors, initial encounter; Y92.89 Other specified places as the place of occurrence of the external cause; Y93.89 Activity, other specified; Y99.8 Other external cause status; Z53.21 Procedure and treatment not carried out due to patient leaving prior to being seen by health care provider

== ENCOUNTER → 2023-07-03 | Outpatient (CLI) | payer OTHER ==
[2023-07-03 14:29] LABS: HEMATOCRIT 38.6 % (36.0-47.0); HEMOGLOBIN 12.7 g/dl (12.0-15.5); MEAN CORPUSCULAR HGB CONC 32.9 g/dl (32.0-36.5); MEAN CORPUSCULAR VOLUME 91.3 fl (80.0-96.0); PLATELET COUNT, AUTOMATED 239 10^3/uL (150-450); RED BLOOD COUNT 4.23 10^6/uL (4.00-5.40); WHITE BLOOD COUNT 6.6 10^3/uL (4.0-10.0)
[2023-07-03 14:37] LABS: ALBUMIN 3.5 G/DL (3.2-5.2); ALKALINE PHOSPHATASE 52 U/L (46-116); ALT/SGPT 11 U/L (7.0-40); AST/SGOT 12 U/L (<34); BILIRUBIN,TOTAL 0.2 MG/DL (0.3-1.2); BLOOD UREA NITROGEN 16 MG/DL (9-23); CALCIUM LEVEL 7.8 MG/DL (8.5-10.1); CARBON DIOXIDE LEVEL 28 MMOL/L (20-31); CHLORIDE LEVEL 106 MMOL/L (98-107); CHOLESTEROL LEVEL 123 MG/DL (<200); CHOLESTEROL RISK RATIO 1.76 (<5); CREATININE FOR GFR 0.63 MG/DL (0.55-1.30); GLOMERULAR FILTRATION RATE > 60.0 (>60); GLUCOSE, FASTING 141 MG/DL (60-100); HDL CHOLESTEROL 69.8 MG/DL (>40); LDL CHOLESTEROL 45.4 MG/DL (<100); NON-HDL-C 53.2 MG/DL; POTASSIUM SERUM 4.1 MMOL/L (3.5-5.1); SODIUM LEVEL 138 MMOL/L (136-145); TOTAL PROTEIN 5.7 G/DL (5.7-8.2); TRIGLYCERIDES LEVEL 39 MG/DL (<150)
[2023-07-03 14:39] LABS: TOTAL 25(OH) VITAMIN D 15.5 NG/ML (20.0-100.0)
[2023-07-03 14:59] LABS: CREATININE, URINE 138.2 MG/DL; MALB URINE SIEMENS < 3.0 MG/L; MAU/CREAT RATIO 2.1 MCG/MG (0.0-30.0)
== END ==
LOC: M PLALAB 10:38
PROVIDERS: ATTEND Nurse Practitioner Family
DX: E10.65 Type 1 diabetes mellitus with hyperglycemia (principal)

== ENCOUNTER → 2023-08-02 | Outpatient (CLI) | payer OTHER ==
[2023-08-02 13:35] LABS: THYROID STIMULATING HORMONE 3.061 uIU/ML (0.55-4.78)
[2023-08-02 13:41] LABS: ALBUMIN 3.9 G/DL (3.2-5.2); ALKALINE PHOSPHATASE 52 U/L (46-116); ALT/SGPT 17 U/L (7.0-40); AST/SGOT 13 U/L (<34); BILIRUBIN,TOTAL 0.5 MG/DL (0.3-1.2); BLOOD UREA NITROGEN 11 MG/DL (9-23); CALCIUM LEVEL 8.5 MG/DL (8.5-10.1); CARBON DIOXIDE LEVEL 25 MMOL/L (20-31); CHLORIDE LEVEL 111 MMOL/L (98-107); CHOLESTEROL LEVEL 146 MG/DL (<200); CHOLESTEROL RISK RATIO 1.67 (<5); CREATININE FOR GFR 0.56 MG/DL (0.55-1.30); GLOMERULAR FILTRATION RATE > 60.0 (>60); GLUCOSE, FASTING 103 MG/DL (60-100); POTASSIUM SERUM 4.1 MMOL/L (3.5-5.1); SODIUM LEVEL 142 MMOL/L (136-145); TOTAL PROTEIN 6.2 G/DL (5.7-8.2); TRIGLYCERIDES LEVEL 50 MG/DL (<150)
== END ==
LOC: M PLALAB 09:06
PROVIDERS: ATTEND Student in an Organized Health Care Education/Training Program
DX: K76.0 Fatty (change of) liver, not elsewhere classified (principal); E10.9 Type 1 diabetes mellitus without complications

== ENCOUNTER → 2023-08-27 | Outpatient (CLI) | payer OTHER ==
[~2023-08-27] MED LIST changes: +BUPR-597 PO; -BUPR300T92 PO
== END ==
LOC: M WHC 08:13
PROVIDERS: ATTEND Student in an Organized Health Care Education/Training Program
DX: R10.9 Unspecified abdominal pain (principal)

== ENCOUNTER 2024-01-09 12:47 | Emergency (ER) | payer OTHER ==
[~2024-01-09] VITALS: Ht 154.9 cm; Wt 59.0 kg
[2024-01-09 16:43] LABS: VENOUS BASE EXCESS -1.7 (-2.0-2.0); VENOUS HCO3 25.7 MMOL/L (23.0-27.0); VENOUS O2 SATURATION 45.4 % (60.0-80.0); VENOUS PARTIAL PRESSURE CO2 53.4 mmHg (38.0-50.0); VENOUS PARTIAL PRESSURE O2 25.9 mmHg (30.0-50.0); VENOUS STANDARD HCO3 21.8 MMOL/L; VENOUS TOTAL CO2 27.3 MMOL/L (24.0-28.0)
[2024-01-09 16:57] LABS: BASO # 0.1 10^3/uL (0.0-0.2); BASO % 1.1 % (0.0-1.0); EOS # 0.1 10^3/uL (0.0-0.5); EOS % 1.7 % (0.0-3.0); HEMATOCRIT 43.8 % (36.0-47.0); LYMPH # 2.3 10^3/uL (1.5-5.0); LYMPH % 34.8 % (24.0-44.0); MEAN CORPUSCULAR HEMOGLOBIN 29.8 pg (27.0-33.0); MEAN CORPUSCULAR HGB CONC 34.2 g/dl (32.0-36.5); MEAN CORPUSCULAR VOLUME 87.1 fl (80.0-96.0); MONO # 0.4 10^3/uL (0.0-0.8); MONO % 6.6 % (2.0-8.0); NEUTROPHILS # 3.6 10^3/uL (1.5-8.5); NEUTROPHILS % 55.5 % (36.0-66.0); PLATELET COUNT, AUTOMATED 300 10^3/uL (150-450); RED BLOOD COUNT 5.03 10^6/uL (4.00-5.40); WHITE BLOOD COUNT 6.6 10^3/uL (4.0-10.0)
[2024-01-09 17:07] LABS: OSMOLALITY SERUM 299 MOSM/KG (275-295)
[2024-01-09 17:11] LABS: HCG, SERUM QUALITATIVE NEGATIVE (NEGATIVE)
[2024-01-09 17:13] LABS: LIPASE 25 U/L (12-53)
[2024-01-09 17:15] LABS: ALBUMIN 4.8 G/DL (3.2-5.2); ALKALINE PHOSPHATASE 71 U/L (46-116); ALT/SGPT 19 U/L (7.0-40); AST/SGOT 13 U/L (<34); BILIRUBIN,DIRECT 0.2 MG/DL (<0.4); BILIRUBIN,TOTAL 0.5 MG/DL (0.3-1.2); BLOOD UREA NITROGEN 12 MG/DL (9-23); CALCIUM LEVEL 9.9 MG/DL (8.5-10.1); CARBON DIOXIDE LEVEL 27 MMOL/L (20-31); CHLORIDE LEVEL 106 MMOL/L (98-107); CREATININE FOR GFR 0.65 MG/DL (0.55-1.30); GLOMERULAR FILTRATION RATE > 60.0 (>60); GLUCOSE, FASTING 113 MG/DL (60-100); HEMOGLOBIN A1c 6.7 % (4.0-6.0); POTASSIUM SERUM 3.9 MMOL/L (3.5-5.1); SODIUM LEVEL 137 MMOL/L (136-145); TOTAL PROTEIN 8.1 G/DL (5.7-8.2)
[2024-01-09] MEDS ORDERED: ISOVUE-370 76% 100ML VIAL As Ordered ONE (17:23)
[2024-01-09] MEDS: ACETAMINOPHEN *IV* 1,000 MG in IV 1 EA IV ONE (17:25)
[2024-01-09] MEDS: KETOROLAC 30 MG/ML 1ML VIAL IV ONE (17:25)
[2024-01-09] MEDS: METHYLNALTREXONE BROMIDE 12MG/0.6ML VIAL (RELISTOR) SC ONE (19:58)
[2024-01-09 20:00] VITALS: BP 121/82; TEMP 98.1; O2SAT 99
== END 2024-01-09 20:32 | disposition home or self-care (01) ==
LOC: M ED 12:47
DX: K59.03 Drug induced constipation (principal); R10.12 Left upper quadrant pain; E10.9 Type 1 diabetes mellitus without complications; F41.9 Anxiety disorder, unspecified; F32.A Depression, unspecified; F90.9 Attention-deficit hyperactivity disorder, unspecified type; Z85.44 Personal history of malignant neoplasm of other female genital organs; Z88.0 Allergy status to penicillin; Z88.8 Allergy status to other drugs, medicaments and biological substances; Z79.4 Long term (current) use of insulin; Z79.899 Other long term (current) drug therapy
CPT/HCPCS: 74177; 80048; 80076; 81001; 82010; 82803; 83036; 83690; 83930; 84703; 85025; 96372; 96374; 99284; J0131; J1885; J2212; Q9967

== ENCOUNTER 2024-02-03 20:36 | Emergency (ER) | payer OTHER ==
[~2024-02-03] VITALS: Ht 154.9 cm; Wt 59.4 kg
[2024-02-03 20:44] VITALS: BP 117/68; TEMP 100.1; O2SAT 98
== END 2024-02-03 23:05 | disposition home or self-care (01) ==
LOC: M ED 20:36
DX: S70.12XA Contusion of left thigh, initial encounter (principal); S70.11XA Contusion of right thigh, initial encounter; Y92.9 Unspecified place or not applicable; Y93.9 Activity, unspecified; Y99.9 Unspecified external cause status; Z88.0 Allergy status to penicillin; Z88.8 Allergy status to other drugs, medicaments and biological substances; Z79.4 Long term (current) use of insulin; Z79.899 Other long term (current) drug therapy